=== PATIENT | female | born 1940 | race Caucasian/White ===

== ENCOUNTER 2017-11-26 15:37 | Observation (INO) ==
[2017-11-26] MEDS ORDERED: Sod Chloride 0.9% Inj 1,000 ML IV.CONT SCH (16:45)
--- NOTE | 2017-11-26 17:19 | XR ---
EXAM DATE: 11/26/2017 5:13 PM EDT AGE/SEX: 77 years / Female INDICATIONS: Chest pain CLINICAL DATA: This is the patient's initial encounter. Patient reports that signs and symptoms have been present for 1 day and indicates a pain score of 0/10. MEDICAL/SURGICAL HISTORY: Cardiovascular disease. Pacemaker. COMPARISON: No prior exams available for comparison. FINDINGS: Single AP view the chest. Dual-lead cardiac pacemaker. The lungs are clear. Mild cardiac s ilhouette enlargement.. No evidence of pleural effusion or pneumothorax. CONCLUSION: Mild cardiac silhouette enlargement. No acute cardiopulmonary disease identified. Electronically signed by: Vidal Mccarty MD 11/26/2017 5:18 PM EDT
--- NOTE | 2017-11-26 17:19 | ED ---
HPI General Chief Complaint: Neuro Symptoms/Deficit Stated Complaint: vision changes/blood clot Time Seen by Provider: 11/26/17 16:09 Source: patient Mode of arrival: ambulatory Limitations: no limitations History of Present Illness HPI narrative: 77-year-old female arrives with after a near syncope event [employer]. She was patient is shopping cart and stopped while he drank milk. She slumped over after nearly losing consciousness. It lasted just a few seconds. There is no numbness tingling or weakness. In the ED the patient has some swelling and pain in the right leg. She reports a recent diagnosis of blood clot in the right leg however is unsure if it was a DVT or a superficial/ peripheral thrombotic event. She has been compliant with Coumadin. Lovenox was added once evidently as a bolus dose. 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 She takes Coumadin due to atrial fibrillation. She has mechanical valve. Patient has otherwise been feeling normal. MD complaint: felt faint Onset (ago): hour(s) -: second(s) Prodromal symptoms: none Witnessed: yes - by bystander Related Data Home Medications Medication Instructions Recorded Confirmed atorvastatin 20 mg PO DAILY 11/26/17 11/26/17 biotin 5,000 mcg SUBLINGUAL DAILY 11/26/17 11/26/17 calcium carbonate-vitamin D3 1 tab PO BID 11/26/17 11/26/17 [Calcium 500 + D (D3)] cyanocobalamin (vitamin B-12) 1,000 mcg PO DAILY 11/26/17 11/26/17 [Vitamin B-12] denosumab [Prolia] 60 mg SUB-Q [id number] 11/26/17 11/26/17 furosemide 20 mg PO DAILY 11/26/17 11/26/17 levothyroxine [Synthroid] 100 mcg PO DAILY 11/26/17 11/26/17 lisinopril 10 mg PO BID 11/26/17 11/26/17 metoprolol tartrate 25 mg PO BID 11/26/17 11/26/17 omeprazole 20 mg PO DAILY 11/26/17 11/26/17 potassium chloride [Klor-Con 10] 10 meq PO DAILY 11/26/17 11/26/17 selenium 200 mcg PO DAILY 11/26/17 11/26/17 warfarin 2.5 mg PO 5XW 11/26/17 11/26/17 warfarin 5 mg PO 2XWEEK 11/26/17 11/26/17 Allergies Allergy/AdvReac Type Severity Reaction Status Date / Time Iodinated Contrast- Oral and Allergy Severe Anaphylaxis Verified 11/26/17 16:31 IV Dye [Contrast] Review of Systems ROS: all other systems reviewed are negative (No chest pain or shortness of breath. No fever chills. No nausea vomiting.) [facility] Medical History Medical History Afib (Acute) Cataract (Acute) DVT (deep venous thrombosis) (Acute) Elevated cholesterol (Acute) Enlarged heart (Acute) Epiploic appendagitis (Acute) FH: cholecystectomy (Acute) Femoral hernia of right side (Acute) GERD (gastroesophageal reflux disease) (Acute) Hypertension (Acute) Hypothyroid (Acute) Leukoplakia of larynx (Acute) Pacemaker (Acute) Trigger finger of right hand (Acute) Vocal cord polyps (Acute) Surgical History Surgical History H/O hysterectomy with unilateral oophorectomy (Acute) H/O right heart catheterization (Acute) H/O varicose vein ligation (Acute) History of ankle surgery (Acute) History of appendectomy (Acute) History of back surgery (Acute) History of bilateral knee replacement (Acute) History of carpal tunnel surgery (Acute) History of right hip replacement (Acute) History of umbilical hernia repair (Acute) History of vitrectomy (Acute) Hx of adenoidectomy (Acute) Hx of tonsillectomy (Acute) Social History Social History Substance History: No History of Abuse Smoking Status: Never smoker How Often Do You Have a Drink Containing Alcohol: Never Recent Travel in [facility] within the Last 8 Weeks: No Recent Out of Country Travel within the Last 8 Weeks: No Immunization History Tetanus Immunization: >5 Years Hx Influenza Vaccine This Season: Yes Exam Narrative Exam Narrative: GENERAL: Well-nourished well-developed 77-year-old female no acute distress SKIN: Focused skin assessment warm/dry. HEAD: Atraumatic. Normocephalic. EYES: Pupils equal and round. No scleral icterus. No injection or drainage. ENT: No nasal bleeding or discharge. Mucous membranes pink and moist. NECK: Trachea midline. No JVD. CARDIOVASCULAR: Regular rate and rhythm. No murmur appreciated. RESPIRATORY: No accessory muscle use. Clear to auscultation. Breath sounds equal bilaterally. GASTROINTESTINAL: Abdomen soft, non-tender, nondistended. Hepatic and splenic margins not palpable. MUSCULOSKELETAL: There is a focus of tenderness on the posterior right calf midline and midway down the calf NEUROLOGICAL: Awake and alert. No obvious cranial nerve deficits. Motor grossly within normal limits. Normal speech. PSYCHIATRIC: Appropriate mood and affect; insight and judgment normal. Course Initial Documented Vital Signs Temperature 98.3 F 11/26/17 16:00 Pulse Rate 71 11/26/17 16:00 Respiratory Rate 16 11/26/17 16:00 Blood Pressure 145/73 H 11/26/17 16:00 Pulse Oximetry 99 11/26/17 16:00 Last Documented Vital Signs Temperature 98.3 F 11/26/17 16:00 Pulse Rate 75 11/26/17 20:10 Respiratory Rate 16 11/26/17 20:10 Blood Pressure 147/69 H 11/26/17 20:10 Pulse Oximetry 98 11/26/17 20:10 Critical Care Time Critical Care Time: Yes Total Critical Care Time: 35 Attestation: Aggregate critical care time was 35 minutes. Time to perform other separately billable procedures was not included in the critical care time. My time did not include minutes spent treating any other patients simultaneously or on activities that did not directly contribute to the patient's treatment. The services I provided to this patient were to treat and/or prevent clinically significant deterioration that could result in: Cardiopulmonary arrest I provided critical care services requiring my management, as noted below: Chart data review, documentation time, medication orders and management, vital sign assessments/reviewing monitor data, ordering and reviewing lab tests, ordering and interpreting/reviewing x-rays and diagnostic studies, care of the patient and discussion of the patient with the admitting physicians. Medical Decision Making MDM Narrative Medical decision making narrative: Pt reported to have been hypotensive at [facility]. Case was discussed with Dr. Drake engel at 9:43 PM. The patient will be kept here with monitoring and further workup as per discretion of hospital service. A call was placed to [facility] for pacemaker interrogation. The patient has rested comfortably in the ER throughout her stay here. Medical Screen Exam Complete: Yes Emergency Medical Condition: Yes Differential Diagnosis Differential Diagnosis: Syncope, anemia, dehydration, DVT, PE, arrhythmia Lab Data Lab results reviewed: Yes I reviewed the patient's lab results. Lab results narrative: Tn undetectable UA moderate bacteriuria INR 3.3 Result diagrams: 11/26/17 17:20 11/26/17 17:20 Lab Results 11/26/17 11/26/17 11/26/17 Range/Units 17:20 17:20 17:20 CBC w Diff Auto diff final WBC 9.3 (4.0-11.0) th/mm3 RBC 4.32 (4.00-5.30) mil/mm3 Hgb 13.5 (11.6-15.3) gm/dL Hct 38.9 (35.0-46.0) % MCV 90.0 (80.0-100.0) fL MCH 31.2 (27.0-34.0) pg MCHC 34.6 (32.0-36.0) % RDW 13.9 (11.6-17.2) % Plt Count 198 (150-450) th/mm3 MPV 8.2 (7.0-11.0) fL Neut % (Auto) 66.7 (16.0-70.0) % Lymph % (Auto) 19.9 (9.0-44.0) % [place] % (Auto) 8.2 H (0.0-8.0) % Eos % (Auto) 3.6 (0.0-4.0) % Baso % (Auto) 1.6 (0.0-2.0) % Neut # (Auto) 6.3 (1.8-7.7) th/mm3 Lymph # (Auto) 1.8 (1.0-4.8) th/mm3 [place] # (Auto) 0.8 (0.0-0.9) th/mm3 Eos # (Auto) 0.3 (0.0-0.4) th/mm3 Baso # (Auto) 0.1 (0.0-0.2) th/mm3 WBC Differential . Differential Comment . PT 33.2 H (9.8-11.6) sec INR 3.3 Ratio APTT 37.0 H (24.3-30.1) sec Sodium 140 (136-145) meq/L Potassium 3.8 (3.5-5.1) meq/L Chloride 106 (98-107) meq/L Carbon Dioxide 22.2 (21.0-32.0) meq/L Anion Gap 12 (5-15) meq/L BUN 17 (7-18) mg/dL Creatinine 1.10 H (0.50-1.00) mg/dL Estimated GFR 48 L (>89) mL/min Random Glucose 106 (74-106) mg/dL Calcium 8.7 (8.5-10.1) mg/dL Total Creatine Kinase 87 (26-192) U/L Troponin I Less than 0.02 L (0.02-0.05) ng/mL Ur Collection Type Urine Color (Yellw/Straw) Urine Clarity (Clear) Urine pH (5.0-8.5) Ur Specific [place] (1.002-1.035) Urine Protein (Neg-Trace) mg/dL Urine Glucose (UA) (Negative) mg/dL Urine Ketones (Negative) mg/dL Urine Occult Blood (Negative) Urine Nitrate (Negative) Urine Bilirubin (Negative) Urine Urobilinogen (Less than 2) mg/dL Ur Leukocyte Esterase (Negative) Urine RBC (0-3) /hpf Urine WBC (0-5) /hpf Ur Squamous Epith Cells (0-5) /hpf Urine Bacteria (None) /hpf Micro UA Comment Ur Microscopic Review Urine Culture Comments Urine Collection Time hours 11/26/17 Range/Units 17:40 CBC w Diff WBC (4.0-11.0) th/mm3 RBC (4.00-5.30) mil/mm3 Hgb (11.6-15.3) gm/dL Hct (35.0-46.0) % MCV (80.0-100.0) fL MCH (27.0-34.0) pg MCHC (32.0-36.0) % RDW (11.6-17.2) % Plt Count (150-450) th/mm3 MPV (7.0-11.0) fL Neut % (Auto) (16.0-70.0) % Lymph % (Auto) (9.0-44.0) % [place] % (Auto) (0.0-8.0) % Eos % (Auto) (0.0-4.0) % Baso % (Auto) (0.0-2.0) % Neut # (Auto) (1.8-7.7) th/mm3 Lymph # (Auto) (1.0-4.8) th/mm3 [place] # (Auto) (0.0-0.9) th/mm3 Eos # (Auto) (0.0-0.4) th/mm3 Baso # (Auto) (0.0-0.2) th/mm3 WBC Differential Differential Comment PT (9.8-11.6) sec INR Ratio APTT (24.3-30.1) sec Sodium (136-145) meq/L Potassium (3.5-5.1) meq/L Chloride (98-107) meq/L Carbon Dioxide (21.0-32.0) meq/L Anion Gap (5-15) meq/L BUN (7-18) mg/dL Creatinine (0.50-1.00) mg/dL Estimated GFR (>89) mL/min Random Glucose (74-106) mg/dL Calcium (8.5-10.1) mg/dL Total Creatine Kinase (26-192) U/L Troponin I (0.02-0.05) ng/mL Ur Collection Type Clean catch Urine Color Yellow (Yellw/Straw) Urine Clarity Clear (Clear) Urine pH 5.5 (5.0-8.5) Ur Specific [place] 1.015 (1.002-1.035) Urine Protein Negative (Neg-Trace) mg/dL Urine Glucose (UA) Negative (Negative) mg/dL Urine Ketones Negative (Negative) mg/dL Urine Occult Blood Negative (Negative) Urine Nitrate Negative (Negative) Urine Bilirubin Negative (Negative) Urine Urobilinogen 0.2 (Less than 2) mg/dL Ur Leukocyte Esterase Negative (Negative) Urine RBC 0-3 (0-3) /hpf Urine WBC 0-5 (0-5) /hpf Ur Squamous Epith Cells Greater than 10 H (0-5) /hpf Urine Bacteria Moderate H (None) /hpf Micro UA Comment Culture indicated Ur Microscopic Review Microscopic reviewed Urine Culture Comments Culture indicated Urine Collection Time 1740 hours Imaging Data Attestation: I personally reviewed and interpreted this imaging study as follows : Radiologist's impression: Chest X-Ray 11/26/17 16:41 CONCLUSION: Mild cardiac silhouette enlargement. No acute cardiopulmonary disease identified. Head CT 11/26/17 16:41 CONCLUSION: No acute intracranial findings. . Venous Doppler Study 11/26/17 18:30 CONCLUSION: 1. No evidence of lower extremity DVT on the right or left. 2. Superficial vein thrombosis of the calf. Pulmonary Perfusion Imaging 11/26/17 18:47 CONCLUSION: No evidence of pulmonary embolus. ECG Data EKG Prior to Arrival: No Attestation: I personally reviewed and interpreted this ECG as follows: ( Electronic ventricular pacemaker rhythm rate 73, rate regular) Discharge Plan Discharge Disposition Patient Disposition: 30 Still Patient Physicians Team ED Provider: Shahid Mtz Primary Care Provider: NON STAFF,PROVIDER Rxs /Orders / Referrals /Forms Prescriptions: No Action atorvastatin 20 mg Tablet 20 mg PO DAILY RF: 0 warfarin 2.5 mg Tablet 2.5 mg PO 5XW RF: 0 potassium chloride [Klor-Con 10] 10 mEq Tablet Extended Release 10 meq PO DAILY RF: 0 levothyroxine [Synthroid] 100 mcg Tablet 100 mcg PO DAILY RF: 0 lisinopril 10 mg Tablet 10 mg PO BID RF: 0 warfarin 5 mg Tablet 5 mg PO 2XWEEK RF: 0 furosemide 20 mg Tablet 20 mg PO DAILY RF: 0 metoprolol tartrate 25 mg Tablet 25 mg PO BID RF: 0 calcium carbonate-vitamin D3 [Calcium 500 + D (D3)] 500 mg(1,250mg) -125 unit Tablet 1 tab PO BID RF: 0 omeprazole 20 mg Tablet,Delayed Release (Dr/Ec) 20 mg PO DAILY RF: 0 denosumab [Prolia] 60 mg/mL Syringe 60 mg SUB-Q [id number] RF: 0 selenium 200 mcg Capsule 200 mcg PO DAILY RF: 0 biotin 5,000 mcg Tablet, Sublingual 5,000 mcg SUBLINGUAL DAILY RF: 0 cyanocobalamin (vitamin B-12) [Vitamin B-12] 1,000 mcg Tablet 1,000 mcg PO DAILY RF: 0 Status ED Status: With Doctor
[2017-11-26 17:29] LABS: Baso # (Auto) 0.1 th/mm3 (0.0-0.2); Baso % (Auto) 1.6 % (0.0-2.0); Eos # (Auto) 0.3 th/mm3 (0.0-0.4); Eos % (Auto) 3.6 % (0.0-4.0); Hematocrit 38.9 % (35.0-46.0); Hemoglobin 13.5 gm/dL (11.6-15.3); Lymph # (Auto) 1.8 th/mm3 (1.0-4.8); Lymph % (Auto) 19.9 % (9.0-44.0); Mean Corpuscular HGB Conc 34.6 % (32.0-36.0); Mean Corpuscular Hemoglobin 31.2 pg (27.0-34.0); Mean Platelet Volume 8.2 fL (7.0-11.0); Mono # (Auto) 0.8 th/mm3 (0.0-0.9); Mono % (Auto) 8.2 % (0.0-8.0); Neut # (Auto) 6.3 th/mm3 (1.8-7.7); Neut % (Auto) 66.7 % (16.0-70.0); Platelet Count 198 th/mm3 (150-450); Red Blood Count 4.32 mil/mm3 (4.00-5.30); Red Cell Distribution Width 13.9 % (11.6-17.2); White Blood Count 9.3 th/mm3 (4.0-11.0)
[2017-11-26 17:36] LABS: Chloride 106 meq/L (98-107); Potassium 3.8 meq/L (3.5-5.1); Sodium 140 meq/L (136-145)
[2017-11-26 17:38] LABS: Calcium 8.7 mg/dL (8.5-10.1)
[2017-11-26 17:39] LABS: Anion Gap 12 meq/L (5-15); Blood Urea Nitrogen 17 mg/dL (7-18); Carbon Dioxide 22.2 meq/L (21.0-32.0); Glucose,Random 106 mg/dL (74-106)
[2017-11-26 17:42] LABS: Glomerular Filtration Rate 48 mL/min (>89)
[2017-11-26 17:44] LABS: INR 3.3 Ratio; Prothrombin Time 33.2 sec (9.8-11.6)
[2017-11-26 17:54] LABS: Bilirubin,Urine Negative (Negative); Clarity,Urine Clear (Clear); Color,Urine Yellow (Yellw/Straw); Glucose,Urine (UA) Negative (Negative); Leukocyte Esterase,Urine Negative (Negative); Nitrite,Urine Negative (Negative); PH,Urine 5.5 (5.0-8.5); Specific Gravity,Urine 1.015 (1.002-1.035); Urobilinogen,Urine 0.2 mg/dL (Less than 2)
[2017-11-26 17:55] LABS: Creatine Kinase 87 U/L (26-192)
[2017-11-26 17:59] LABS: Collection Time,Urine 1740 hours
[2017-11-26 18:00] LABS: Bacteria,Urine Moderate /hpf; RBC,Urine 0-3 /hpf (0-3); Squamous Epithelial Cell,Urine Greater than 10 /hpf (0-5); WBC,Urine 0-5 /hpf (0-5)
--- NOTE | 2017-11-26 18:03 | CT ---
EXAM DATE: 11/26/2017 5:57 PM EDT AGE/SEX: 77 years / Female INDICATIONS: Visual changes today, blurry vision, headache, light headed CLINICAL DATA: This is the patient's initial encounter. Patient reports that signs and symptoms have been present for 1 day and indicates a pain score of 0/10. MEDICAL/SURGICAL HISTORY: Gastroesophageal reflux disease. Deep venous thrombosis. Pacemaker. Hys terectomy. Appendectomy. Heart cath, tonsillectomy, Left eye Vitrectomy RADIATION DOSE: 46.82 CTDI (mGy) COMPARISON: No prior exams available for comparison. TECHNIQUE: CT of the head without contrast. Using automated exposure control and adjustment of the mA and/or kV according to patient size, radiation dose was kept as low as reasonably achievable to ob tain optimal diagnostic quality images. DICOM format image data is available electronically for revi ew and comparison. FINDINGS: Cerebrum: The ventricles are normal for age. No evidence of midline shift, mass lesion, hemorrhage or acute infarction. No extraaxial fluid collections are seen. Posterior Fossa: The cerebellum and brainstem are intact. The 4th ventricle is midline. The cerebe llopontine angle is unremarkable. Extracranial: The visualized portion of the orbits is intact. Skull: The calvaria is intact. No evidence of skull fracture. CONCLUSION: No acute intracranial findings. . Electronically signed by: Vidal Mccarty MD 11/26/2017 6:02 PM EDT
--- NOTE | 2017-11-26 19:57 | US ---
EXAM DATE: 11/26/2017 7:47 PM EDT AGE/SEX: 77 years / Female INDICATIONS: Leg pain and swelling. CLINICAL DATA: This is the patient's initial encounter. Patient reports that signs and symptoms have been present for 4 - 6 days and indicates a pain score of 5/10. MEDICAL/SURGICAL HISTORY: Hypertension. Gastroesophageal reflux disease. Hypercholesterolemia . Right leg DVT. Enlarged heart. Hysterectomy. Tonsillectomy. Umbilical hernia repair. Bilateral knee replacement. COMPARISON: No prior exams available for comparison. TECHNIQUE: Venous ultrasound of both lower extremities was performed from the inguinal ligament to t he proximal calf. Real-time, color Doppler and spectral tracing, compression and augmentation techni ques were used. FINDINGS: Right Leg: Superficial vein thrombosis of the greater saphenous vein of the mid calf. Normal michele sulema and color Doppler flow of the deep veins of the right lower extremity. Left Leg: Normal compression of the deep venous system from the inguinal region to the proximal calf . No echogenic clot is seen. Normal response of the venous system to augmentation and respiration. Other: None. CONCLUSION: 1. No evidence of lower extremity DVT on the right or left. 2. Superficial vein thrombosis of the calf. Electronically signed by: Vidal Mccarty MD 11/26/2017 7:56 PM EDT
--- NOTE | 2017-11-26 21:19 | NM ---
EXAM DATE: 11/26/2017 9:14 PM EDT AGE/SEX: 77 years / Female INDICATIONS: Dyspnea and near syncope. CLINICAL DATA: This is the patient's initial encounter. Patient reports that signs and symptoms have been present for 1 day and indicates a pain score of 0/10. MEDICAL/SURGICAL HISTORY: . Atrial fibrillation. None. COMPARISON: [facility], CHEST 1V SINGLE AP, 11/26/2017. . DOSE: 1.4 mCi Tc99m DTPA aerosol 8.5 mCi Tc99m MAA IV TECHNIQUE: Following five minutes of tidal breathing of DTPA aerosol, planar images of the lungs wer e performed in eight projections. The patient was then injected with MAA, and eight-view perfusion s can was performed. FINDINGS: There is a homogeneous pattern of aerosol delivery to the periphery of both lungs. No focal ventilat ory defects are seen. The perfusion lung scan demonstrates a homogenous pattern of uptake in both lungs. No segmental or s ubsegmental defects are seen. CONCLUSION: No evidence of pulmonary embolus. Electronically signed by: Vidal Mccarty MD 11/26/2017 9:17 PM EDT
[2017-11-26] MEDS ORDERED: Acetaminophen 325 MG Tablet PO PRN (21:43)
[2017-11-26] MEDS ORDERED: Bisacodyl 10 MG Supp RECTAL PRN (21:43)
--- NOTE | 2017-11-26 21:56 | ECG ---
Date Performed: 11/26/2017 Time Performed: 16:50:38 PTAGE: 77 years EKG: ELECTRONIC VENTRICULAR PACEMAKER ABNORMAL RHYTHM ECG NO PREVIOUS TRACING DOCTOR: Galilea Mercado Interpretating Date/Time 11/26/2017 21:54:12
[2017-11-26] MEDS: Sod Chloride 0.9% Inj 1,000 ML IV.CONT SCH (22:01)
[2017-11-27 08:24] VITALS: O2SAT 95
[2017-11-27] MEDS: Sod Chloride 0.9% Inj 1,000 ML IV.CONT SCH (08:27)
[2017-11-27] MEDS ORDERED: Senna/Docusate Sodium 8.6/50 MG Tablet PO SCH (09:00)
[2017-11-27 09:11] VITALS: BP 162/79; RESP 20; TEMP 98.6
[2017-11-27 09:17] LABS: Baso % (Auto) 0.7 % (0.0-2.0); Eos # (Auto) 0.3 th/mm3 (0.0-0.4); Eos % (Auto) 5.4 % (0.0-4.0); Hematocrit 37.9 % (35.0-46.0); Hemoglobin 12.6 gm/dL (11.6-15.3); Lymph # (Auto) 1.6 th/mm3 (1.0-4.8); Lymph % (Auto) 24.9 % (9.0-44.0); Mean Corpuscular HGB Conc 33.2 % (32.0-36.0); Mean Corpuscular Hemoglobin 30.2 pg (27.0-34.0); Mean Corpuscular Volume 91.2 fL (80.0-100.0); Mean Platelet Volume 8.2 fL (7.0-11.0); Mono # (Auto) 0.4 th/mm3 (0.0-0.9); Mono % (Auto) 6.2 % (0.0-8.0); Neut # (Auto) 4.1 th/mm3 (1.8-7.7); Neut % (Auto) 62.8 % (16.0-70.0); Platelet Count 179 th/mm3 (150-450); Red Blood Count 4.16 mil/mm3 (4.00-5.30); White Blood Count 6.4 th/mm3 (4.0-11.0)
[2017-11-27 09:24] LABS: INR 2.8 Ratio; Prothrombin Time 28.5 sec (9.8-11.6)
[2017-11-27 09:43] LABS: Chloride 109 meq/L (98-107); Potassium 3.9 meq/L (3.5-5.1); Sodium 142 meq/L (136-145)
[2017-11-27 09:50] LABS: Albumin 3.4 g/dL (3.4-5.0); Anion Gap 12 meq/L (5-15); Carbon Dioxide 21.3 meq/L (21.0-32.0); Glucose,Random 148 mg/dL (74-106)
[2017-11-27 09:51] LABS: Calcium 8.6 mg/dL (8.5-10.1)
[2017-11-27 09:52] LABS: Alanine Aminotransferase 22 U/L (10-53)
[2017-11-27 09:53] LABS: Aspartate Aminotransferase 17 U/L (15-37); Blood Urea Nitrogen 13 mg/dL (7-18); Glomerular Filtration Rate 48 mL/min (>89)
[2017-11-27 09:54] LABS: Total Protein 6.8 g/dL (6.4-8.2)
[2017-11-27 09:55] LABS: Alkaline Phosphatase 46 U/L (45-117)
[2017-11-27 10:13] VITALS: PULSE 72
--- NOTE | 2017-11-27 13:42 | P.HP ---
History of Present Illness Primary Care Physician: PROVIDER NON STAFF Chief Complaint: Blurred vision and dizziness History of Present Illness: 77-year-old female with rather extensive history of atrial fibrillation, hypertension, hyper lipidemia, hypothyroidism, history of DVT who presented to the hospital because a episode of visual disturbance and dizziness. Patient states that she is in normal state of health until yesterday when she was at the grocery store with her she was pushing the cart and then she got like a blurred vision with dizziness. She thought it was the starting of vertigo that she close her eyes and put her head down and told her to call 911. Patient does have significant family history of strokes so she thought this may be a symptom of that. Patient states that her symptoms lasted for less than 1 minute but she came to the hospital for evaluation. Patient did undergo CT scan which was unremarkable. Is recommended by the ER physician that the patient be observed in the hospital for further evaluation and management. Patient denied any speech difficulties, unilateral weakness, paresthesia, difficulty in ambulation. Patient has just recently underwent significant cardiac workup with her electron tube assembler Dr. Christine. Patient has had echocardiogram, carotid ultrasound, cardiac catheterization within the last month. I did call and speak to the patient's electron tube assembler and he indicated that everything was good on all of her testing. Her pacemaker was interrogated emergency department, still awaiting those results. Patient is very eager to go home and does not feel that there is any other testing that we can do that has not already been performed. Unable to perform MRI due to patient having a pacemaker. Patient is already anticoagulated with Coumadin with therapeutic INR. Given the patient's symptoms have resolved and not returned, patient is anticoagulated, patient has had recent workup with a electron tube assembler. Patient does not want to do any further testing or treatment. I discussed with her that she may be failing Coumadin treatment and this could be possible TIA/CVA. Patient does not want to change her anticoagulation to Xarelto or Eliquis at this time. Patient's symptoms have resolved. Patient was notified to follow- up with her primary medical doctor/electron tube assembler. Patient does understand. Anticipate discharging patient home once review of the interrogation has been completed and orthostatic vitals are negative. Patient's electron tube assembler is in agreement with discharge with outpatient follow-up. - Diagnosis (1) Dizziness Review of Systems All other systems reviewed negative except as stated in HPI Eyes: Reports change in vision Neurologic: Reports dizziness PMFSH - History History Provided By: Patient - Medical History Medical History: Medical History (Last Reviewed 11/27/17 @ 13:34 by ZE Estrada) Afib DVT (deep venous thrombosis) Elevated cholesterol Enlarged heart Epiploic appendagitis FH: cholecystectomy GERD (gastroesophageal reflux disease) Hypertension Hypothyroid Leukoplakia of larynx Trigger finger of right hand Vocal cord polyps - Surgical History Surgical History: Surgical History (Last Reviewed 11/27/17 @ 13:34 by ZE Estrada) H/O hysterectomy with unilateral oophorectomy H/O right heart catheterization H/O varicose vein ligation History of ankle surgery History of appendectomy History of back surgery History of bilateral knee replacement History of carpal tunnel surgery History of cataract surgery History of right hip replacement History of umbilical hernia repair History of vitrectomy Hx of adenoidectomy Hx of tonsillectomy Pacemaker - Family History Family History: Family History (Last Updated 11/27/17 @ 13:34 by ZE Estrada) Father History of stroke Mother History of breast cancer - Tobacco History Second Hand Smoke Exposure: No Tobacco Use In Past 30 Days: No Smoking Status: Never smoker - Alcohol History How Often Do You Have a Drink Containing Alcohol: Monthly or less - Substance Use History Substance History: No History of Abuse - Travel History Recent Travel in the [place] Within the Last 8 Weeks: No Recent Travel Out of the Country Within the Last 8 Weeks: No - Immunization History Tetanus Immunization: >5 Years Hx Influenza Vaccine This Season: Yes Medications and Allergies Active Medications: Active Medications Acetaminophen (Tylenol) 650 mg PO Q4H PRN PRN Reason: Temp > 100.4 Al Hydroxide/Mg Hydroxide (Milk Of Magnesia Liq) 30 ml PO Q12H PRN PRN Reason: Mild Constipation Bisacodyl (Dulcolax Supp) 10 mg RECTAL DAILY PRN PRN Reason: SEVERE CONSITIPATION Sodium Chloride (Ns Inj) 1,000 mls @ 100 mls/hr IV.CONT .Q10H [facility] Last Infusion: 11/27/17 08:27 Dose: Infused Lactulose (Lactulose Liq) 30 ml PO DAILY PRN PRN Reason: SEVERE CONSITIPATION Ondansetron HCl (Zofran Inj) 4 mg IV.PUSH Q6H PRN PRN Reason: NAUSEA OR VOMITING Senna/Docusate Sodium (Katy-Colace) 1 tab PO BID ZANDRA Last Admin: 11/27/17 08:27 Dose: Not Given Sennosides (Senokot) 17.2 mg PO Q12H PRN PRN Reason: Moderate Constipation Sodium Chloride (Ns Flush) 2 ml IV.FLUSH PRN PRN PRN Reason: FLUSH AFTER USING IV ACCESS Last Admin: 11/26/17 17:29 Dose: 2 ml Allergies Allergy/AdvReac Type Severity Reaction Status Date / Time Iodinated Contrast- Oral and Allergy Severe Anaphylaxis Verified 11/26/17 16:31 IV Dye [Contrast] Home Medications Medication Instructions Recorded Confirmed Type atorvastatin 20 mg PO DAILY 11/26/17 11/26/17 History biotin 5,000 mcg SUBLINGUAL DAILY 11/26/17 11/26/17 History calcium carbonate-vitamin D3 1 tab PO BID 11/26/17 11/26/17 History [Calcium 500 + D (D3)] cyanocobalamin (vitamin B-12) 1,000 mcg PO DAILY 11/26/17 11/26/17 History [Vitamin B-12] denosumab [Prolia] 60 mg SUB-Q [id number] 11/26/17 11/26/17 History furosemide 20 mg PO DAILY 11/26/17 11/26/17 History levothyroxine [Synthroid] 100 mcg PO DAILY 11/26/17 11/26/17 History lisinopril 10 mg PO BID 11/26/17 11/26/17 History metoprolol tartrate 25 mg PO BID 11/26/17 11/26/17 History omeprazole 20 mg PO DAILY 11/26/17 11/26/17 History potassium chloride [Klor-Con 10] 10 meq PO DAILY 11/26/17 11/26/17 History selenium 200 mcg PO DAILY 11/26/17 11/26/17 History warfarin 2.5 mg PO 5XW 11/26/17 11/26/17 History warfarin 5 mg PO 2XWEEK 11/26/17 11/26/17 History Exam Vital signs: Vital Signs 11/26/17 16:00 11/26/17 17:00 11/26/17 17:35 Temperature 98.3 F Pulse Rate 71 74 73 Respiratory Rate 16 16 16 Blood Pressure 145/73 H 145/73 H 152/75 H Pulse Oximetry 99 98 98 11/26/17 20:10 11/26/17 23:51 11/27/17 00:00 Temperature 97.0 F L Pulse Rate 75 72 77 Respiratory Rate 16 16 Blood Pressure 147/69 H 149/72 H Pulse Oximetry 98 100 11/27/17 04:00 11/27/17 05:45 11/27/17 08:00 Temperature 96.5 F L 98.6 F Pulse Rate 75 72 Respiratory Rate 16 20 Blood Pressure 145/70 H 162/79 H Pulse Oximetry 97 98 98 11/27/17 08:24 Temperature Pulse Rate Respiratory Rate Blood Pressure Pulse Oximetry 95 Intake & Output 11/26/17 11/27/17 11/27/17 18:59 06:59 18:59 Intake Total 1200 / 1200 1240 / 1240 Output Total 400 / 400 Balance 1200 / 1200 840 / 840 Weight 80.9 kg 80.9 kg Intake: IV 200 / 200 1000 / 1000 NS Inj 1,000 ML @ 100 mls/hr IV 200 / 200 1000 / 1000 .CONT .Q10H ZANDRA Rx#:[id number] Oral 1000 / 1000 240 / 240 Output: Urine 400 / 400 Other: # Voids 2 Narrative: GENERAL: Well-developed, well-nourished, in no acute distress. alert and orientated HEENT: Head is normocephalic without any lesions or masses noted. Facial features are symmetric. Eyes: Pupils equal round reactive to light. Extraocular muscles are intact. Conjunctivae were clear. Oropharyngeal: Pharynx without any erythema edema. Tongue is midline without deviation. Buccal mucosa is moist without any masses or lesions NECK: Supple without any masses. Trachea midline no deviation. No JVD, no bruits are appreciated CARDIAC: Regular rhythm, regular rate. S1/S2 are heard. No murmurs gallops or rubs. LUNGS: Clear to auscultation bilaterally. No wheeze, rhonchi or rales. No use of accessory muscles on inspiration or expiration. ABDOMEN: Soft, nontender. Nondistended. Bowel sounds heard in all 4 quadrants. No organomegaly or masses. Negative rebound, negative guarding EXTREMITIES: No edema, pulses are equal bilaterally. No cyanosis or clubbing NEUROLOGY: Mood and affect appear appropriate. Cranial nerves II through XII grossly intact. Muscle strength 5/5 in upper and lower extremities bilaterally. Deep tendon reflexes are 2+ in upper and lower extremities bilaterally. Results - Labs CBC & Chem 7: 11/27/17 08:50 11/27/17 08:50 Labs: Laboratory Results - last 24 hr 11/26/17 11/26/17 11/26/17 17:20 17:20 17:20 CBC w Diff Auto diff final WBC 9.3 RBC 4.32 Hgb 13.5 Hct 38.9 MCV 90.0 MCH 31.2 MCHC 34.6 RDW 13.9 Plt Count 198 MPV 8.2 Neut % (Auto) 66.7 Lymph % (Auto) 19.9 [place] % (Auto) 8.2 H Eos % (Auto) 3.6 Baso % (Auto) 1.6 Neut # (Auto) 6.3 Lymph # (Auto) 1.8 [place] # (Auto) 0.8 Eos # (Auto) 0.3 Baso # (Auto) 0.1 WBC Differential . Differential Comment . PT 33.2 H INR 3.3 APTT 37.0 H Sodium 140 Potassium 3.8 Chloride 106 Carbon Dioxide 22.2 Anion Gap 12 BUN 17 Creatinine 1.10 H Estimated GFR 48 L POC Glucose Random Glucose 106 Calcium 8.7 Total Bilirubin AST ALT Alkaline Phosphatase Total Creatine Kinase 87 Troponin I Less than 0.02 L Total Protein Albumin Ur Collection Type Urine Color Urine Clarity Urine pH Ur Specific [place] Urine Protein Urine Glucose (UA) Urine Ketones Urine Occult Blood Urine Nitrate Urine Bilirubin Urine Urobilinogen Ur Leukocyte Esterase Urine RBC Urine WBC Ur Squamous Epith Cells Urine Bacteria Micro UA Comment Ur Microscopic Review Urine Culture Comments Urine Collection Time 11/26/17 11/27/17 11/27/17 17:40 00:28 04:38 CBC w Diff WBC RBC Hgb Hct MCV MCH MCHC RDW Plt Count MPV Neut % (Auto) Lymph % (Auto) [place] % (Auto) Eos % (Auto) Baso % (Auto) Neut # (Auto) Lymph # (Auto) [place] # (Auto) Eos # (Auto) Baso # (Auto) WBC Differential Differential Comment PT INR APTT Sodium Potassium Chloride Carbon Dioxide Anion Gap BUN Creatinine Estimated GFR POC Glucose 105 Random Glucose Calcium Total Bilirubin AST ALT Alkaline Phosphatase Total Creatine Kinase Troponin I Less than 0.02 L Total Protein Albumin Ur Collection Type Clean catch Urine Color Yellow Urine Clarity Clear Urine pH 5.5 Ur Specific [place] 1.015 Urine Protein Negative Urine Glucose (UA) Negative Urine Ketones Negative Urine Occult Blood Negative Urine Nitrate Negative Urine Bilirubin Negative Urine Urobilinogen 0.2 Ur Leukocyte Esterase Negative Urine RBC 0-3 Urine WBC 0-5 Ur Squamous Epith Cells Greater than 10 H Urine Bacteria Moderate H Micro UA Comment Culture indicated Ur Microscopic Review Microscopic reviewed Urine Culture Comments Culture indicated Urine Collection Time 1740 11/27/17 11/27/17 11/27/17 08:50 08:50 08:50 CBC w Diff Auto diff final WBC 6.4 RBC 4.16 Hgb 12.6 Hct 37.9 MCV 91.2 MCH 30.2 MCHC 33.2 RDW 14.0 Plt Count 179 MPV 8.2 Neut % (Auto) 62.8 Lymph % (Auto) 24.9 [place] % (Auto) 6.2 Eos % (Auto) 5.4 H Baso % (Auto) 0.7 Neut # (Auto) 4.1 Lymph # (Auto) 1.6 [place] # (Auto) 0.4 Eos # (Auto) 0.3 Baso # (Auto) 0.0 WBC Differential . Differential Comment . PT 28.5 H INR 2.8 APTT Sodium 142 Potassium 3.9 Chloride 109 H Carbon Dioxide 21.3 Anion Gap 12 BUN 13 Creatinine 1.10 H Estimated GFR 48 L POC Glucose Random Glucose 148 H Calcium 8.6 Total Bilirubin 1.3 H AST 17 ALT 22 Alkaline Phosphatase 46 Total Creatine Kinase Troponin I Less than 0.02 L Total Protein 6.8 Albumin 3.4 Ur Collection Type Urine Color Urine Clarity Urine pH Ur Specific [place] Urine Protein Urine Glucose (UA) Urine Ketones Urine Occult Blood Urine Nitrate Urine Bilirubin Urine Urobilinogen Ur Leukocyte Esterase Urine RBC Urine WBC Ur Squamous Epith Cells Urine Bacteria Micro UA Comment Ur Microscopic Review Urine Culture Comments Urine Collection Time - Imaging Impressions Chest X-Ray 11/26/17 16:41 CONCLUSION: Mild cardiac silhouette enlargement. No acute cardiopulmonary disease identified. Head CT 11/26/17 16:41 CONCLUSION: No acute intracranial findings. . Venous Doppler Study 11/26/17 18:30 CONCLUSION: 1. No evidence of lower extremity DVT on the right or left. 2. Superficial vein thrombosis of the calf. Pulmonary Perfusion Imaging 11/26/17 18:47 CONCLUSION: No evidence of pulmonary embolus. Caprini VTE Risk Assessment Caprini VTE Risk Assessment: Moderate/High Risk (score >= 2) Caprini Risk Assessment Model: Point Value = 1 Point Value = 2 Point Value = 3 Point Value = 5 Age 41-60 Minor surgery BMI > 25 kg/m2 Swollen legs Varicose veins or History of unexplained or recurrent spontaneous Oral contraceptives or hormone replacement Sepsis (< 1 month) Serious lung disease, including pneumonia (< 1 month) Abnormal pulmonary function Acute myocardial infarction Congestive heart failure (< 1 month) History of inflammatory bowel disease Medical patient at bed rest Age 61-74 Arthroscopic surgery Major open surgery (> 45 min) Laparoscopic surgery (> 45 min) Malignancy Confined to bed (> 72 hours) Immobilizing plaster cast Central venous access Age >= 75 History of VTE Family history of VTE Factor V Leiden Prothrombin [id number] Lupus anticoagulant Anticardiolipin antibodies Elevated serum homocysteine Heparin-induced thrombocytopenia Other congenital or acquired thrombophilia Stroke (< 1 month) Elective arthroplasty Hip, pelvis, or leg fracture Acute spinal cord injury (< 1 month) Prophylaxis Regimen: Total Risk Factor Score Risk Level Prophylaxis Regimen 0-1 Low Early ambulation 2 Moderate Order ONE of the following: *Sequential Compression Device (SCD) *Heparin 5000 units SQ BID 3-4 Higher Order ONE of the following medications: *Heparin 5000 units SQ TID *Enoxaparin/Lovenox 40 mg SQ daily (WT < 150 kg, CrCl > 30 mL/min) *Enoxaparin/Lovenox 30 mg SQ daily (WT < 150 kg, CrCl > 10-29 mL/min) *Enoxaparin/Lovenox 30 mg SQ BID (WT < 150 kg, CrCl > 30 mL/min) AND/OR *Sequential Compression Device (SCD) 5 or more Highest Order ONE of the following medications: *Heparin 5000 units SQ TID (Preferred with Epidurals) *Enoxaparin/Lovenox 40 mg SQ daily (WT < 150 kg, CrCl > 30 mL/min) *Enoxaparin/Lovenox 30 mg SQ daily (WT < 150 kg, CrCl > 10-29 mL/min) *Enoxaparin/Lovenox 30 mg SQ BID (WT < 150 kg, CrCl > 30 mL/min) AND *Sequential Compression Device (SCD) Assessment and Plan - Assessment (1) Dizziness Code(s): R42 - Dizziness and giddiness Status: Acute - Plan Dizziness, possible near syncope -Possible etiologies could include embolic event, TIA, vertigo, cardiogenic near syncope -CT scan of brain did not indicate any acute abnormality -Unable to perform MRI secondary to pacemaker -Pacemaker interrogation was performed and no abnormalities -Echocardiogram, carotid ultrasound, recent cardiac catheterization was performed by patient's electron tube assembler Dr. Magallanes. I did discuss the patient's case with him who indicated that patient had a clean cardiac catheterization with good ejection fraction. Patient had mild plaque in the carotids with clean internal carotid. Echocardiogram was within normal limits. -Patient is already anticoagulated on Coumadin with INR 2.8, patient does not want to change anticoagulations at this time to Xarelto or Eliquis -Patient does not want to have any further workup performed, since she has had full workup done within the last month. Patient does not want to change anticoagulation at this time. Patient very eager to be discharged. It was discussed with the patient's electron tube assembler and he is in agreement that if pacemaker interrogation was without any abnormalities and orthostatic vitals were normal patient can be discharged with outpatient follow-up with him. Hypertension, hyperlipidemia, chronic atrial fibrillation -Continued home medications -Coumadin continued Right lower extremity DVT by history -Vascular ultrasound did not indicate any DVT, however patient has had superficial thrombosis -Patient continued on anticoagulation DVT prevention -Patient is on Coumadin Discharge Planning: Discharge home in stable condition Activity: Ad aguila. Diet: Healthy heart diet Medication per medication reconciliation Follow-up with primary medical doctor in 1 week
[2017-11-27] MEDS ORDERED: Lisinopril 10 MG Tablet PO SCH (14:00)
[2017-11-27] MEDS ORDERED: Pantoprazole Sodium 20 MG DR Tablet PO SCH (14:00)
[2017-11-27] MEDS ORDERED: Furosemide 20 MG Tablet PO SCH (14:00)
[2017-11-27] MEDS ORDERED: Metoprolol Tartrate 25 MG Tablet PO SCH (14:00)
[2017-11-27] MEDS ORDERED: Levothyroxine 100 MCG Tablet PO SCH (14:00)
== END 2017-11-27 15:00 | disposition home or self-care (01) ==
LOC: PHED 15:37 → PHEDA 15:37 → PH3 22:45
PROVIDERS: ADMIT Family Medicine; ATTEND Family Medicine